=== PATIENT | male | born 1960 | race Caucasian/White ===

== ENCOUNTER 2019-12-06 01:08 | Inpatient (IN) | payer SELFPAY ==
--- NOTE | 2019-12-06 01:12 | ED_ITS ---
Entered by Giselle Platt, acting as scribe for Jordan Brock DO HPI - Psych General: Chief Complaint: Psychiatric Symptoms Stated Complaint: 96 Time Seen by Provider: 12/06/19 01:12 Source: patient and police Mode of arrival: ambulatory (in handcuffs) History of Present Illness: HPI Narrative: 59 y/o male presents to the ED under a 96 hour hold. Pt states he does not know why he is here. He denies both suicidality and homicidality. Pt states he had 7-8 beers while watching the [employer] game at home, this evening. He was texting with his son about the game when the police showed up at his door. Pt states he is an educated/informed individual and he feels like this is a violation of his privacy. Pt states he plans to write a book about his experience here. He admits to speaking openly about his ex , with his son, but states he does not hold any grudges. He was simply having a conversation with a family member. [place] states he answered the door with a gun in his hand. MD complaint: other (96 hour hold) Onset (ago): hour(s) Associated psychiatric symptoms: none Associated symptoms: Deny auditory hallucinations or visual hallucinations Review of Systems Const: Denies: fever or chills Eyes: Denies: change in vision or blurry vision ENMT: Denies: painful swallowing, swelling of lips/tongue, bleeding gums, dental pain, Change in hearing, nose bleeds, post nasal drip or facial/sinus pain Card: Denies: chest pain, palpitations, irregular heart rhythm, edema, swelling of feet/ankles, shortness of breath on exertion or shortness of breath when lying down Resp: Denies: shortness of breath, productive cough, non-productive cough or wheezing GI: Denies: abdominal pain, nausea, vomiting, rectal pain, blood in stool or black tarry stool : Denies: difficulty urinating, painful urination, urinary frequency, urinary urgency or blood in urine Musc: Denies: neck pain, back pain, redness or joint warmth Skin/Breast: Denies: rash, itching or redness Neuro: Denies: headache or dizziness Psych: Denies: anxiety, visual hallucinations or auditory hallucinations PFSH ED PFSH: Statuses (acute, chronic, etc) shown below reflect problem list status as previously entered and may not be historically accurate Social History Smoking and tobacco status: former smoker Physical Exam Const: GENERAL APPEARANCE: well developed ORIENTATION/CONSCIOUSNESS: Yes oriented to person, Yes oriented to place and Yes oriented to time HENMT: COMMON NORMALS: normocephalic, external ears normal and external nose normal HEAD & SCALP: normocephalic; no scalp tenderness FACE & SINUS: normal facial exam NOSE: external nose normal and no nasal discharge EXTERNAL EAR: Yes external ears normal MOUTH: tongue normal TEETH & GINGIVA: no abnormal tooth and associated gingiva THROAT: posterior oropharynx normal; no peritonsillar mass Eye: COMMON NORMALS: PERRL, EOMs intact bilaterally and conjunctivae normal EYELID: eyelids normal CONJUNCTIVA: Yes conjunctivae normal PUPIL: Yes PERRL Neck/C-Spine: COMMON NORMALS: full ROM GENERAL: No tracheal deviation Chest: COMMONS NORMALS: inspection of chest normal CHEST: No tenderness Resp: COMMON NORMALS: clear to auscultation bilaterally EFFORT & INSPECTION: No tachypneic, No respiratory distress, No retractions, No uses accessory muscles and No tracheal deviation AUSCULTATION: clear to auscultation bilaterally, no rhonchi, no wheezes and lung sounds not diminished Cardio: COMMON NORMALS: regular rate and regular rhythm RATE: regular rate RHYTHM: regular rhythm HEART SOUNDS: no murmurs PERIPHERAL PULSES: radial pulses present GI: INSPECTION: No abdominal distension AUSCULTATION: No hyperactive bowel sounds and No hypoactive bowel sounds PALPATION: No guarding and No rigid PERCUSSION: no dullness to percussion and no tympanic to percussion Neuro: SENSORIUM/ORIENTATION: Yes oriented to person, Yes oriented to place and Yes oriented to time Psych: ATTITUDE: Yes other (manic) SPEECH: Yes pressured MOOD & AFFECT: Yes expansive affect THOUGHT CONTENT: No suicidality, No homicidality and No hallucination(s) ATTENTION/CONCENTRATION: Yes attention grossly intact Skin: COMMON NORMALS: no rashes or lesions noted GENERAL SKIN EXAM: no rashes or lesions noted MDM - Psych Lab Data: Labs: Lab Results 12/06/19 12/06/19 12/06/19 Range/Units 01:43 01:43 02:02 WBC 6.5 (4.0-10.0) 10^3/ uL RBC 4.85 (4.1-5.3) 10^6/u L Hgb 14.7 (11.7-16.6) g/dL Hct 45.3 (42.0-52.0) % MCV 93.4 (80-94) fL MCH 30.3 (28.0-34.0) pg MCHC 32.5 (30.0-36.0) g/dL RDW 11.8 L (12.1-15.1) % Plt Count 307 (130-400) 10^3/c mm MPV 9.5 (7.4-10.4) fL Neut % (Auto) 53.6 % Lymph % (Auto) 39.4 % Esmeralda % (Auto) 4.8 % Eos % (Auto) 1.1 % Baso % (Auto) 0.9 % Neut # (Auto) 3.5 (1.8-7.7) 10^3/u L Lymph # (Auto) 2.6 (0.8-4.8) 10^3/u L Esmeralda # (Auto) 0.3 (0.2-0.9) 10^3/u L Eos # (Auto) 0.1 (0.0-0.8) 10^3/u L Baso # (Auto) 0.1 (0.0-0.1) 10^3/u L Nucleated RBC % (a uto) 0 % Nucleated RBCs # 0.0 /100WBC Sodium (136-145) mmol/L Potassium (3.5-5.1) mmol/L Chloride (98-107) mmol/L Carbon Dioxide (22-29) mmol/L Anion Gap (5-19) BUN (6-20) mg/dL Creatinine (0.7-1.2) mg/dL GFR Calculation (90-130) mL/min Glucose (74-109) mg/dL Calcium (8.5-10.5) mg/dL Total Bilirubin (0.15-1.2) mg/dL AST (0-40) U/L ALT (0-41) U/L Alkaline Phosphata se (40-130) IU/L Total Protein (6.6-8.7) g/dL Albumin (3.5-5.2) g/dL Globulin (1.3-4.6) g/dL TSH (0.27-4.20) uIU/ mL Urine Color Yellow (Yellow) Urine Appearance Clear (CLEAR) Urine pH 5 (5-7) Ur Specific Gravit y 1.015 (1.005-1.030) Urine Protein Neg (Negative) Urine Glucose (UA) Norm (Normal) Urine Ketones Negative (Negative) Urine Occult Blood Neg (Negative) Urine Nitrate Negative (Negative) Urine Bilirubin Neg (NEGATIVE) Urine Urobilinogen Norm (Negative) mg/dL Ur Leukocyte Amber ase Negative (Negative) Salicylates (3-10) mg/dL Urine Opiates Scre en Negative (Negative) ng/mL Acetaminophen (10-30) ug/mL Ur Barbiturates Sc reen Negative (Negative) ng/mL Ur Phencyclidine S crn Negative (Negative) ng/mL Ur Amphetamines Sc reen Negative (Negative) ng/mL U Benzodiazepines Scrn Negative (Negative) ng/mL Urine Cocaine Scre en Negative (Negative) ng/mL U Marijuana (THC) Screen Negative (Negative) ng/mL Ethyl Alcohol (0-10) mg/dL 12/06/19 Range/Units 02:02 WBC (4.0-10.0) 10^3/ uL RBC (4.1-5.3) 10^6/u L Hgb (11.7-16.6) g/dL Hct (42.0-52.0) % MCV (80-94) fL MCH (28.0-34.0) pg MCHC (30.0-36.0) g/dL RDW (12.1-15.1) % Plt Count (130-400) 10^3/c mm MPV (7.4-10.4) fL Neut % (Auto) % Lymph % (Auto) % Esmeralda % (Auto) % Eos % (Auto) % Baso % (Auto) % Neut # (Auto) (1.8-7.7) 10^3/u L Lymph # (Auto) (0.8-4.8) 10^3/u L Esmeralda # (Auto) (0.2-0.9) 10^3/u L Eos # (Auto) (0.0-0.8) 10^3/u L Baso # (Auto) (0.0-0.1) 10^3/u L Nucleated RBC % (a uto) % Nucleated RBCs # /100WBC Sodium 140 (136-145) mmol/L Potassium 3.9 (3.5-5.1) mmol/L Chloride 100 (98-107) mmol/L Carbon Dioxide 27 (22-29) mmol/L Anion Gap 16.9 (5-19) BUN 13 (6-20) mg/dL Creatinine 1.1 (0.7-1.2) mg/dL GFR Calculation 69.0 L (90-130) mL/min Glucose 130 H (74-109) mg/dL Calcium 9.7 (8.5-10.5) mg/dL Total Bilirubin 0.4 (0.15-1.2) mg/dL AST 51 H (0-40) U/L ALT 59 H (0-41) U/L Alkaline Phosphata se 53 (40-130) IU/L Total Protein 8.0 (6.6-8.7) g/dL Albumin 4.7 (3.5-5.2) g/dL Globulin 3.3 (1.3-4.6) g/dL TSH 1.40 (0.27-4.20) uIU/ mL Urine Color (Yellow) Urine Appearance (CLEAR) Urine pH (5-7) Ur Specific Gravit y (1.005-1.030) Urine Protein (Negative) Urine Glucose (UA) (Normal) Urine Ketones (Negative) Urine Occult Blood (Negative) Urine Nitrate (Negative) Urine Bilirubin (NEGATIVE) Urine Urobilinogen (Negative) mg/dL Ur Leukocyte Amber ase (Negative) Salicylates < 0.3 L (3-10) mg/dL Urine Opiates Scre en (Negative) ng/mL Acetaminophen < 5.0 L (10-30) ug/mL Ur Barbiturates Sc reen (Negative) ng/mL Ur Phencyclidine S crn (Negative) ng/mL Ur Amphetamines Sc reen (Negative) ng/mL U Benzodiazepines Scrn (Negative) ng/mL Urine Cocaine Scre en (Negative) ng/mL U Marijuana (THC) Screen (Negative) ng/mL Ethyl Alcohol 185 H (0-10) mg/dL Discharge Plan Discharge Patient Disposition: Admitted As Inpatient Admit Provider: Jose Martin Colby Clinical Impression: Olga Lidia, Homicidal ideation Alcohol intoxication Qualifiers: Complication of substance-induced condition: uncomplicated Qualified Code(s): F10.920 - Alcohol use, unspecified with intoxication, uncomplicated Condition: Stable Coding Level of Care Code ED Rivet Sorter for Lori Silva The documentation recorded by the Lc edwards Ashley, accurately reflects the service I personally performed and the decisions made by Vinod hernandez Jeremy John, DO Dec 06, 2019 01:08
[2019-12-06 01:21] VITALS: BP 149/95; PULSE 109; RESP 16; TEMP 36.6; O2SAT 95; BMI 33.0
--- NOTE | 2019-12-06 01:54 | ECG_ITS ---
Measurements Intervals [place] Rate: 91 P: 40 WY: 148 QRS: 4 QRSD: 98 T: 63 QT: 361 QTc: 445 SINUS RHYTHM No previous ECG available for comparison Electronically Signed On 12-06-2019 20:57:54 [employer]URBINE BLADE ASSEMBLER by Obi Roy M.D. [email or web address]
[2019-12-06 02:09] LABS: Basophils # 0.1 10^3/uL (0.0-0.1); Basophils % 0.9 %; Eosinophils # 0.1 10^3/uL (0.0-0.8); Eosinophils % 1.1 %; Hematocrit 45.3 % (42.0-52.0); Hemoglobin 14.7 g/dL (11.7-16.6); Lymphocytes # 2.6 10^3/uL (0.8-4.8); Lymphocytes % 39.4 %; Mean Corpuscular HGB Conc 32.5 g/dL (30.0-36.0); Mean Corpuscular Hemoglobin 30.3 pg (28.0-34.0); Mean Corpuscular Volume 93.4 fL (80-94); Mean Platelet Volume 9.5 fL (7.4-10.4); Monocytes # 0.3 10^3/uL (0.2-0.9); Monocytes % 4.8 %; Neutrophils # 3.5 10^3/uL (1.8-7.7); Neutrophils % 53.6 %; Nucleated Red Blood Cells % 0 %; Platelet Count 307 10^3/cmm (130-400); Red Blood Count 4.85 10^6/uL (4.1-5.3); Red Cell Distribution Width 11.8 % (12.1-15.1); White Blood Count 6.5 10^3/uL (4.0-10.0)
[2019-12-06 02:10] LABS: Add Urine Microscopic? NO
[2019-12-06 02:15] LABS: Bilirubin Urine Neg (NEGATIVE); Blood Urine Neg (Negative); Glucose Urine UA Norm (Normal); Ketones Urine Negative (Negative); Leukocyte Esterase Urine Negative (Negative); Nitrate Urine Negative (Negative); Protein Urine Neg (Negative); Specific Gravity, Urine 1.015 (1.005-1.030); Urine Appearance Clear (CLEAR); Urine Color Yellow (Yellow); Urobilinogen Urine Norm (Negative); pH Urine 5 (5-7)
--- NOTE | 2019-12-06 02:27 | PC.NURSE ---
Sitter at bedside.
[2019-12-06 02:36] LABS: Amphetamines Screen Urine Negative (Negative); Barbiturates Screen Urine Negative (Negative); Benzodiazepines Screen Urine Negative (Negative); Cocaine Screen Urine Negative (Negative); Opiate Screen Urine Negative (Negative); PCP Screen Urine Negative (Negative); THC Screen Urine Negative (Negative)
[2019-12-06 02:37] LABS: Acetaminophen < 5.0 ug/mL (10-30); Alanine Aminotransferase 59 U/L (0-41); Albumin Level 4.7 g/dL (3.5-5.2); Alcohol Level 185 mg/dL (0-10); Alkaline Phosphatase 53 IU/L (40-130); Anion Gap 16.9 (5-19); Aspartate Amino Transferase 51 U/L (0-40); Blood Urea Nitrogen 13 mg/dL (6-20); Calcium 9.7 mg/dL (8.5-10.5); Carbon Dioxide 27 mmol/L (22-29); Chloride 100 mmol/L (98-107); Globulin 3.3 g/dL (1.3-4.6); Glucose 130 mg/dL (74-109); Potassium 3.9 mmol/L (3.5-5.1); Salicylate < 0.3 mg/dL (3-10); Sodium 140 mmol/L (136-145); Total Bilirubin 0.4 mg/dL (0.15-1.2)
[2019-12-06 04:35] VITALS: BP 134/81; PULSE 89; RESP 20; TEMP 36.7; O2SAT 94
[2019-12-06 04:43] VITALS: BP 136/84; PULSE 90; RESP 17; TEMP 36.6; O2SAT 94
[2019-12-06 14:00] VITALS: BP 142/85; PULSE 95; RESP 20; TEMP 36.7; O2SAT 97
--- NOTE | 2019-12-06 14:01 | P.HP_ITS ---
Providers/Chief Complaint Admitting Physician: Jose Martin Colby MD Chief Complaint: 96 HPI NPU History of Present Illness Yuriy Perez is a 59 year old male who presented to the emergency room after police went to his home and exercised a 96-hour warrant. Patient denied any issues. He denied the claims of the 96-hour hold or at least the details. The 96-hour hold reports that he made some threatening texts to his son and . When the client services manager arrive they report that they overheard him talking about bashing someone's head in. They knocked on the door and he answered the door with a gun. The officer states that the gun was pointed towards him Mr. Perez says that he was not. He also denies making threatening texts and only reports that he was doing talked intact and is worried that maybe something got misinterpreted. He denies any history of psychiatric care. He denies ever having thoughts of suicide or any homicidal thoughts. He reports that his relationship with his ex- is complicated by her infidelity among other things. He strongly denies any allegations that he would threaten or actually harm his son or ex-. He denies ever having mental health treatment and does not want to stay in the hospital. Psychiatric history: As above. He denies any medication, hospitalizations or ongoing treatment. Substance abuse history: He denies smoking cigarettes, reports drinking alcohol rarely, denies smoking marijuana or any other illicit drug usage. Family history: He denies any significant mental health or addiction issues that run in the family. He denies any suicide attempts or completions in his family nor does he have any suicide attempts. Developmental history: He denies any issues with his mom's and delivery of him. He learned to walk and talk and met his developmental milestones on time. He denies any speech therapy, learning support, emotional support or special education classes. Psychosocial history: He reports that his mother and father were together when he was born and stayed together until his father at age 41. He reports that his mother about 4 weeks ago. He reports being his father's only son. He reports that his childhood was great though his dad was in the [place] and was not around as much. And then he very shortly after leaving the [place]. He denies emotional, physical or sexual abuse. He graduated from high school. He also got a college degree. He endorses being a heterosexual with his longest relationship being that with his ex-. He has been 1 time and 1 time. He helped raise his 's 2 older daughters that she had prior to them getting together. They have 1 son together which is his only biological child. 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 He currently live in a house alone. Legal history: He denies fdc time but does report a previous PFA during the time that he reports his was cheating on him. Meds NPU Home Medications Medication Instructions Recorded Confirmed Type No Known Home Medications 12/06/19 12/06/19 History Allergies Allergy/AdvReac Type Severity Reaction Status Date / Time No Known Allergies Allergy Verified 12/06/19 01:20 PFSH NPU PFSH: Statuses (acute, chronic, etc) shown below reflect problem list status as previously entered and may not be historically accurate Social History Smoking and tobacco status: former smoker Mental Status Exam MSE Comments: This is a overweight versus obese white male with adequate dress, grooming and contact. No abnormal movements. Cooperative with exam in no acute distress. Speech was normal rate and volume. Mood described as good affect slightly irritable. Thought process organized. Thought content: Patient denied any suicidal or homicidal ideation, there were no delusions reported noted, he denied any auditory or visual hallucinations. Attention and concentration were intact and memory was unreliable but none were formally tested. He is alert and oriented ?3. Insight and judgment are limited. Vitals/I&O/Wt Last Vital Signs Temperature 98.1, pulse 86, respirations 18, pulse ox 97%, blood pressure 160/95. Weight last 48 hrs Weight 104.326 kg Data NPU : 12/06/19 02:02 12/06/19 02:02 A&P Assessment and plan (1) Adjustment disorder with mixed disturbance of emotions and conduct: This is a 59-year-old white male who presents with no significant history of mental health treatment but some reports of alcohol use issues at different times in his life who presents on a 96 hour hold with reports of aggressive threats towards his son and ex- which he denies but is supported by a police officer crime prevention in an affidavit for the 96 hour hold. 1. Continue current medication. 2. Patient is not interested in psychiatric medications and possibly is not in need of medication just made a poor choice while intoxicated. 3. Encourage individual, group and milieu therapy. 4. We'll continue to monitor and evaluate for safety concerns. 5. Continue every 15 minute checks for safety. 6. We will work to see if we can make sure he has all the guns removed from his house and in maybe a good friends care for a month while he de-escalate from the situation. 7. Encourage consideration of mental health aftercare as well as possible sober living follow-up. Status: Acute Code(s): F43.25 - Adjustment disorder with mixed disturbance of emotions and conduct Involuntary Hold Information 96 Hour Hold: 96 Hour Involuntary Admission: Yes 96 Hour Hold Ending Date: 12/10/19 96 Hour Hold Ending Time: 01:12 Attestations NPU Medical Necessity Statement*: Inpatient hospitalization is medically necessary and the clinically appropriate intervention at this time. Patient will be in the hospital for over 2 midnights. No clear indication for the need for medication but given the 96 hour hold and some of the statements made as well as his access to firearms we will exercise due to diligence and making sure that he is sober and has resources in place at the time of discharge. Coding Level of Care Code Acute Electric Wirer for Lori Silva Diagnoses Adjustment disorder with mixed disturbance of emotions and conduct F43.25
[2019-12-06 21:26] VITALS: BP 160/95; PULSE 86; RESP 18; TEMP 36.7; O2SAT 94
[2019-12-07 06:00] VITALS: BP 142/81; PULSE 64; RESP 17; TEMP 36.8; O2SAT 93
[2019-12-07 14:00] VITALS: BP 140/97; PULSE 103; RESP 20; TEMP 36.7
--- NOTE | 2019-12-07 15:46 | PM.NPN ---
Subjective NPU Subjective: Interval history: Yuriy presented today still somewhat reluctant to acknowledge that he knows or suspects that he set an appropriate threats to his son and/or his ex-. He is clear that he has no ill intent towards either of them and denies any desires to harm them or plans to do so. Did have a lengthy discussion about the possibility of following up with outpatient services in an attempt to allow him to work through any grudges or anger that he holds onto for feeling that he was not treated well during their marriage. We discussed the importance of being able to let go and the power of forgiveness. He has acknowledged all along the need to make amends with his son, but it appears that he struggling with forgiveness in dealing with the things he believes his ex- may have done that were unfair to him. He is aware of the PFA, and endorsed a plan not to do anything to break it but also a plan to go to court to have his day in court to defend himself. He reports that he is eating and sleeping well. Mental Status Exam MSE Comments: This is a overweight versus obese white male with adequate dress, grooming and contact. No abnormal movements. Cooperative with exam in no acute distress. Speech was normal rate and volume. Mood described as good affect congruent. Thought process organized. Thought content: Patient denied any suicidal or homicidal ideation, there were no delusions reported noted, he denied any auditory or visual hallucinations. Attention and concentration were intact and memory was unreliable but none were formally tested. He is alert and oriented ?3. Insight and judgment are limited, but improving. Vitals/I&O/Wt Last Vital Signs Temp 98.1 F 12/07/19 14:00 Pulse 103 H 12/07/19 14:00 Resp 20 H 12/07/19 14:00 BP 140/97 12/07/19 14:00 Pulse Ox 93 12/07/19 06:00 Weight last 48 hrs Weight 104.326 kg Data NPU : 12/06/19 02:02 12/06/19 02:02 A&P Additional A&P Information This is a 59-year-old white male who presents with no significant history of mental health treatment but some reports of alcohol use issues at different times in his life who presents on a 96 hour hold with reports of aggressive threats towards his son and ex- which he denies but is supported by a motorcycle police officer in an affidavit for the 96 hour hold. 1. Continue current medication. 2. Patient is not interested in psychiatric medications and possibly is not in need of medication just made a poor choice while intoxicated. 3. Encourage individual, group and milieu therapy. 4. We'll continue to monitor and evaluate for safety concerns. 5. Continue every 15 minute checks for safety. 6. We will work to see if we can make sure he has all the guns removed from his house and in maybe a good friends care for a month while he de-escalate from the situation. 7. Encourage consideration of mental health aftercare as well as possible sober living follow-up. Involuntary Hold Information 96 Hour Hold: 96 Hour Involuntary Admission: Yes 96 Hour Hold Ending Date: 12/10/19 96 Hour Hold Ending Time: 01:12 Attestations NPU Medical Necessity Statement*: Inpatient hospitalization is medically necessary and the clinically appropriate intervention at this time. No clear indication for the need for medication but given the 96 hour hold and some of the statements made as well as his access to firearms we will exercise due to diligence and making sure that he is sober and has resources in place at the time of discharge. Will consider discharge tomorrow.Likely length of stay 1-3 days. Coding Level of Care Code Acute Type Bar And Segment Assembler for Lori Silva
[2019-12-07 22:00] VITALS: BP 146/83; PULSE 87; RESP 19; TEMP 36.7; O2SAT 98
[2019-12-08 06:00] VITALS: BP 137/96; PULSE 84; RESP 17; TEMP 36.6; O2SAT 95
--- NOTE | 2019-12-08 13:37 | P.DS_ITS ---
Diagnoses at Discharge Discharge Diagnosis (1) Adjustment disorder with mixed disturbance of emotions and conduct: Status: Acute Reason for Visit Reason for Visit: Reason For Visit: 96 Brief History: [facility] NPU History of Present Illness Yuriy Perez is a 59 year old male who presented to the emergency room after police went to his home and exercised a 96-hour warrant. Patient denied any issues. He denied the claims of the 96-hour hold or at least the details. The 96-hour hold reports that he made some threatening texts to his son and . When the custom van converter arrive they report that they overheard him talking about bashing someone's head in. They knocked on the door and he answered the door with a gun. The officer states that the gun was pointed towards him Mr. Perez says that he was not. He also denies making threatening texts and only reports that he was doing talked intact and is worried that maybe something got misinterpreted. He denies any history of psychiatric care. He denies ever having thoughts of suicide or any homicidal thoughts. He reports that his relationship with his ex- is complicated by her infidelity among other things. He strongly denies any allegations that he would threaten or actually harm his son or ex-. He denies ever having mental health treatment and does not want to stay in the hospital. Psychiatric history: As above. He denies any medication, hospitalizations or ongoing treatment. Substance abuse history: He denies smoking cigarettes, reports drinking alcohol rarely, denies smoking marijuana or any other illicit drug usage. Family history: He denies any significant mental health or addiction issues that run in the family. He denies any suicide attempts or completions in his family nor does he have any suicide attempts. Developmental history: He denies any issues with his mom's and delivery of him. He learned to walk and talk and met his developmental milestones on time. He denies any speech therapy, learning support, emotional support or special education classes. Psychosocial history: He reports that his mother and father were together when he was born and stayed together until his father at age 41. He reports that his mother about 4 weeks ago. He reports being his father's only son. He reports that his childhood was great though his dad was in the [place] and was not around as much. And then he very shortly after leaving the [place]. He denies emotional, physical or sexual abuse. He graduated from high school. He also got a college degree. He endorses being a heterosexual with his longest relationship being that with his ex-. He has been 1 time and 1 time. He helped raise his 's 2 older daughters that she had prior to them getting together. They have 1 son together which is his only biological child. He denies service, he reports his longest employment was possibly in the [employer]. He currently live in a house alone. Legal history: He denies detention time but does report a previous PFA during the time that he reports his was cheating on him. Hospital Course Hospital Course Yuriy presented to the emergency room on a 96 hour hold secondary to interaction with the police related to statements he made while intoxicated texts that he said during that state as well. They deny all of the accusations of lethality and reported that these were just poor statements and poor judgments made while drunk. He was admitted to the neuro psych unit and quickly acclimated to the individual, group and milieu therapies. He was either reluctant to share the honesty of his situation or lacked insight. However he was evaluated and deemed to be absent credible lethality and was not interested in ongoing psychiatric treatment or medication though he accepted a referral for outpatient services. During hospitalization he had routine laboratory studies which were within normal limits except for a few outliers. Additionally he had a general medical evaluation which was also within normal limits and revealed no significant acute processes. Discharge Summary At the time of discharge he denied all lethality, his mood and anxiety were under control, he denied any psychosis endorsed the plan to avoid drugs of abuse and follow-up with outpatient referrals. He was evaluated and deemed to be absent credible lethality was 96 hour hold was discontinued and he was discharged. Involuntary Hold Information 96 Hour Hold: 96 Hour Involuntary Admission: Yes 96 Hour Hold Ending Date: 12/10/19 96 Hour Hold Ending Time: 01:12 Mental Status Exam MSE Comments: This is a overweight versus obese white male with adequate dress, grooming and contact. No abnormal movements. Cooperative with exam in no acute distress. Speech was normal rate and volume. Mood described as good affect congruent. Thought process organized. Thought content: Patient denied any suicidal or homicidal ideation, there were no delusions reported noted, he denied any auditory or visual hallucinations. Attention and concentration were intact and memory was unreliable but none were formally tested. He is alert and oriented ?3. Insight and judgment are limited, but improving. Discharge Data Vitals: Last Vital Signs Temp 97.8 F 12/08/19 06:00 Pulse 84 12/08/19 06:00 Resp 17 12/08/19 06:00 BP 137/96 12/08/19 06:00 Pulse Ox 95 12/08/19 06:00 Discharge Plan Discharge Patient Disposition: Home, Self-Care Condition: Stable Prescriptions: No Action No Known Home Medications RF: 0 Discharge Orders: Discharge Order (Routine); Ordered 12/08/19 Ordered By: Jose Martin Colby Discharge Diet: Regular Discharge Activity: Resume usual activity Patient Instructions: Alcohol Intoxication, Mood Disorders (DC) Activity Restrictions/Additional Instructions: Follow-up with an outpatient mental health provider of choice as needed. To initiate services at [facility] ([facility]) you can go during the walk-in hours any day Friday through Friday form 7:30 a.m. to 2:30 p.m. The earlier in the day you get to clinic the better. It's a first come first serve. Appointments are available after one comes for the walk-in request for services. [facility] ([facility]) [address] [place] [address] Walk-in hours: 7:30 a.m.-2:30 p.m. Friday through Friday Discharge Date/Time: 12/08/19 14:53 Discharge Attestations NPU Time Spent in Discharge Care*: less than 30 min Specific Discharge Activities: Specific discharge activities: educating patient, discussing with director of casework/social workers/dc planners, documenting/other paperwork and evaluating patient/reviewing data Coding Level of Care Code Acute Tool Grinder Operator for Andreag Fwd Diagnoses Adjustment disorder with mixed disturbance of emotions and conduct F43.25
[2019-12-08 13:56] VITALS: BP 137/96; PULSE 84; RESP 17; O2SAT 95
[2019-12-08 14:00] VITALS: BP 137/96; PULSE 84; RESP 17; TEMP 36.6; O2SAT 95
== END 2019-12-08 14:53 | disposition home or self-care (01) | DRG 882 ==
LOC: ER 03:13 → NP 03:46
PROVIDERS: Admitting Provider Psychiatry & Neurology Psychiatry; Emergency Provider Emergency Medicine; Visit Provider Psychiatry & Neurology Psychiatry
DX: F43.25 Adjustment disorder with mixed disturbance of emotions and conduct (principal); Z87.891 Personal history of nicotine dependence
CPT/HCPCS: 12345; 80053; 80307; 81003; 84443; 85025; 93005; 99284

== ENCOUNTER → 2021-03-28 14:06 | Outpatient (BNVA) | payer SELFPAY | PROVIDERS: Visit Provider Family Medicine Adult Medicine | DX: I10 Essential (primary) hypertension (principal); R42 Dizziness and giddiness; R53.83 Other fatigue; F43.25 Adjustment disorder with mixed disturbance of emotions and conduct; R94.4 Abnormal results of kidney function studies; E66.9 Obesity, unspecified | CPT/HCPCS: 80053; 80061; 83036; 84443; 85025 ==

== ENCOUNTER → 2022-06-25 11:46 | Outpatient (BNVA) | payer SELFPAY | PROVIDERS: PCP Family Medicine Adult Medicine; Visit Provider Family Medicine Adult Medicine | DX: E78.5 Hyperlipidemia, unspecified (principal); E66.9 Obesity, unspecified; I10 Essential (primary) hypertension; R79.89 Other specified abnormal findings of blood chemistry | CPT/HCPCS: 80053; 80061; 84443; 85025 ==